=== PATIENT | male | born 1995 ===

== ENCOUNTER 2024-01-04 13:34 | Emergency (ER) | payer OTHER ==
[~2024-01-04] VITALS: Ht 182.9 cm; Wt 95.2 kg
[2024-01-04 13:40] VITALS: BP 135/85
== END 2024-01-04 14:37 | disposition home or self-care (01) ==
LOC: ER 13:34
DX: S81.012A Laceration without foreign body, left knee, initial encounter (principal); F17.290 Nicotine dependence, other tobacco product, uncomplicated; Y04.8XXA Assault by other bodily force, initial encounter
CPT/HCPCS: 12002; 99283-25